=== PATIENT | male | born 1970 | race Caucasian/White ===

== ENCOUNTER 2016-10-07 19:05 | Emergency (ER) | payer MEDICAID ==
--- NOTE | 2016-10-07 19:08 | EDPHY ---
H & P HPI/ROS: CHIEF COMPLAINT: "Just DTing" HISTORY OF PRESENT ILLNESS: The patient is a 45 y/o male, with a history of cirrhosis, arriving via EMS from the [facility] complaining of alcohol withdrawal and DTs. He has a history of alcoholism and states his last drink was yesterday. He has no known history of withdrawal seizures. He feels like his heart is racing. He denies recent trauma or illness. He is hoping to detox completely off alcohol. No hallucinations or seizures. REVIEW OF SYSTEMS: A ten point review of systems was performed and is negative with the exception of the items mentioned in the HPI. - Medical/Surgical History PMH: PMH includes: 1. Alcoholism 2. Cirrhosis 3. 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 Hepatitis C 5. TB 13 years ago, subsequent chest x-rays normal Denies family history of cardiac problems, though states several family members including both parents from liver failure secondary to alcoholism. - Social History Additional Social History: 1 pack+/day, 1/2+ gallon whiskey daily. Former IV drug user. Was hitchhiking from [place] through [place]. - Physical Exam Exam: General Appearance: Alert. Vital signs reviewed. 141/101, RR 24 at triage. Eyes: Pupils equal and round, no conjunctival injection, no discharge. Anicteric. ENT, Mouth: Mucous membranes are moist, no oropharyngeal erythema or edema. Poor dentition. Neck: No lymphadenopathy, supple. Respiratory: Lungs are clear to auscultation; no wheezes, rales, or rhonchi. Cardiovascular: Regular rate and rhythm; no murmur, rub, or gallop. Gastrointestinal: Abdomen is soft with mild diffuse tenderness without guarding , no masses or organomegaly, bowel sounds normal. Skin: Warm and dry, no rashes on exposed skin, normal color. Back: Nontender to palpation over the thoracolumbar spine. No CVAT. Extremities: No lower extremity edema, no calf tenderness or swelling. Neurological: Alert and oriented. Moving all four extremities easily and equally. Tremulous. Psychiatric: Normal affect. Constitutional: Initial Vital Signs Temperature (C) 36.8 C 10/07/16 19:07 Heart Rate 89 10/07/16 19:07 Respiratory Rate 24 H 10/07/16 19:07 Blood Pressure 141/101 H 10/07/16 19:07 O2 Sat (%) 95 10/07/16 19:07 O2 Delivery Mode Room Air O2 (L/minute) 2 Allergies/Adverse Reactions: No Known Allergies Allergy (Unverified 10/07/16 19:15) Home Medications: Medication Instructions Recorded chlordiazePOXIDE 25MG PREPK#6 1 btl TAKEHOME PRN PRN #6 btl 10/07/16 [Librium 25 mg Prepack#6] Medical Decision Making - Diagnostics EKG Interpretation: 12 lead EKG is interpreted in Trace master View by emergency department physician. No acute ischemic changes. No previous EKGs for comparison. ED Course/Re-evaluation: Patient received 2mg IV Ativan, 1L IV NS, and 600mg PO ibuprofen here for symptoms. He is stable for discharge to the [facility] on Librium protocol. I've recommended following up with [facility] as well to established care in the area for his chronic complaints. Return precautions given. I think that he can safely withdraw at the [facility]. Differential Diagnosis: DDX includes but is not limited to alcohol withdrawal, use of illicit drugs, malingering. - Data Points Laboratory Results: Laboratory Results 10/07/16 19:00 10/07/16 19:00 Medications Given: Discontinued Medications Chlordiazepoxide (Librium 25 Mg Prepack#6) 1 btl TAKEHOME EDNOW ONE Stop: 10/07/16 20:21 Last Admin: 10/07/16 20:26 Dose: 1 btl Sodium Chloride (Ns) 1,000 mls @ 3,000 mls/hr IV ONCE ONE Stop: 10/07/16 19:54 Last Admin: 10/07/16 19:37 Dose: 1,000 mls Ibuprofen (Motrin) 600 mg PO EDNOW ONE Stop: 10/07/16 20:04 Last Admin: 10/07/16 20:09 Dose: 600 mg Lorazepam (Ativan Injection) 1 mg IVP EDNOW ONE Stop: 10/07/16 19:36 Last Admin: 10/07/16 19:37 Dose: 1 mg Lorazepam (Ativan Injection) 1 mg IVP EDNOW ONE Stop: 10/07/16 19:40 Last Admin: 10/07/16 19:48 Dose: 1 mg Departure - Departure Disposition: Home, Routine, Self-Care Clinical Impression: Alcohol withdrawal Qualifiers: Complication of substance-induced condition: uncomplicated Qualified Code(s): F10.230 - Alcohol dependence with withdrawal, uncomplicated Condition: Good Instructions: Chlordiazepoxide/Clidinium (By mouth), Alcohol Withdrawal (ED) Additional Instructions: Medically clear for the [facility]. Take Librium as prescribed for symptoms of alcohol withdrawal. Follow up with [facility] to establish primary care for your liver problems. Referrals: Patient,NotPresent [Unknown] - As per Instructions [facility],. [Clinic] - As per Instructions [facility] Hours [Outside] - As per Instructions Prescriptions: chlordiazePOXIDE 25MG PREPK#6 [Librium 25 mg Prepack#6] 1 btl TAKEHOME PRN PRN # 6 btl PRN Reason: alcohol withdrawal Report Scribed for: Anabela Larsen Report Scribed by: Jyotsna Kasper Date of Report: 10/07/16 Time of Report: 19:40 Physician Review and Approval Statement: 10/07/16 19:07 Portions of this note were transcribed by the medical technologist chief. I, Dr. Anabela Larsen, personally performed the history, physical exam, and medical decision- making; and confirmed the accuracy of the information in the transcribed note.
[2016-10-07] MEDS ORDERED: LORazepam 2 MG/ML INJ ONE (19:18)
[2016-10-07] MEDS ORDERED: LORazepam 2 MG/ML INJ IVP ONE ×2 (19:35→19:39)
[2016-10-07] MEDS ORDERED: NS 1,000 ML IV ONE (19:35)
--- NOTE | 2016-10-07 19:43 | CPEKG ---
Heart Rate: 82 RR Interval: 732 P-R Interval: 156 QRSD Interval: 90 QT Interval: 384 QTC Interval: 449 P Burton: 69 QRS Burton: 63 T Wave Burton: 18 EKG Severity - BORDERLINE ECG - EKG Impression: SINUS RHYTHM EKG Impression: BORDERLINE INFERIOR Q WAVES Electronically Signed By: Missy Salazar 14-Oct-2016 13:52:37
[2016-10-07 19:45] LABS: % IMMATURE GRANULYOCYTES 0.4 % (0.0-1.1); ABSOLUTE IMMATURE GRANULOCYTES 0.03 10^3/uL (0.00-0.10); ADD DIFF? NO; ADD MORPH? NO; ADD SCAN? NO; ATYPICAL LYMPHOCYTE FLAG 0 (0-99); FRAGMENT RBC FLAG 0 (0-99); HEMATOCRIT 38.1 % (40.0-51.0); LEFT SHIFT FLG 0 (0-99); LIPEMIA HEMOLYSIS FLAG 90 (0-99); MEAN CELL HEMOGLOBIN 30.8 pg (27.9-34.1); MEAN CELL HEMOGLOBIN CONCENTR. 34.1 g/dL (32.4-36.7); MEAN CELL VOLUME 90.3 fL (81.5-99.8); MEAN PLATELET VOLUME 9.7 fL (8.7-11.7); PLATELET CLUMPS FLAG 0 (0-99); PLATELET COUNT 269 10^3/uL (150-400); RED BLOOD CELL COUNT 4.22 10^6/uL (4.40-6.38)
[2016-10-07 19:54] LABS: ANION GAP 15 mEq/L (8-16); CALCIUM 8.7 mg/dL (8.5-10.4); CARBON DIOXIDE 26 mEq/l (22-31); CHLORIDE 98 mEq/L (97-110); CREATININE 0.8 mg/dL (0.7-1.3); GLOMERULAR FILTRATION RATE > 60; GLUCOSE 155 mg/dL (70-100); POTASSIUM 3.4 mEq/L (3.5-5.2); SODIUM 139 mEq/L (134-144)
[2016-10-07] MEDS ORDERED: IBUPROFEN 600 MG TAB PO ONE (20:03)
[2016-10-07 20:05] LABS: TROPONIN I < 0.012 ng/mL (0-0.034)
[2016-10-07] MEDS ORDERED: CHLORDIAZEPOXIDE 25MG PREPK#6 BTL TAKEHOME ONE (20:20)
[2016-10-07 20:38] VITALS: BP 126/71; PULSE 88; RESP 18; TEMP 98.6; O2SAT 91
== END 2016-10-07 20:40 | disposition home or self-care (01) ==
DX: F10.230 Alcohol dependence with withdrawal, uncomplicated (principal)
CPT/HCPCS: 96374; J2060

== ENCOUNTER 2016-11-13 20:24 | Emergency (ER) | payer SELFPAY ==
[2016-11-13] MEDS ORDERED: TDAP ADULT 0.5 ML INJ (BOOSTRIX) IM ONE (22:03)
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
[2016-11-14] MEDS ORDERED: IBUPROFEN 600 MG TAB PO ONE ×2 (00:01)
[2016-11-14 00:34] VITALS: BP 118/82; PULSE 72; RESP 16; TEMP 97.9; O2SAT 96
== END 2016-11-14 00:32 | disposition home or self-care (01) ==
LOC: EDUNIT#
PROC: 0HQ3XZZ Repair Left Ear Skin, External Approach (ICD-10-PCS; principal; 2016-11-13)
DX: S01.312A Laceration without foreign body of left ear, initial encounter (principal); F10.121 Alcohol abuse with intoxication delirium; Z23 Encounter for immunization; X58.XXXA Exposure to other specified factors, initial encounter